=== PATIENT | male | born 1965 | race American Indian/Alaskan Native ===

== ENCOUNTER 2016-06-10 22:58 | Emergency (ER) | payer OTHER ==
--- NOTE | 2016-06-10 23:40 | EDM.PDOC ---
ED HISTORY OF PRESENT ILLNESS - General Chief Complaint: Cardiovascular Problem Stated Complaint: HIGH BLOOD PRESSURE Time Seen by Provider: 06/10/16 23:38 Source of Information: Reports: Patient History Limitations: Reports: No limitations - History of Present Illness INITIAL COMMENTS - FREE TEXT/NARRATIVE: c/o more SAVAGE since being off BP Rx last . also been urinating more now denies dysuria. - Related Data Allergies/ADRs: Allergies Allergy/AdvReac Type Severity Reaction Status Date / Time amlodipine Allergy Headache Verified 06/10/16 23:09 benazepril Allergy Cough Verified 04/16/16 06:02 cephalexin monohydrate Allergy Hives Verified 04/16/16 06:02 [From Keflex] ciprofloxacin [From Cipro] Allergy Hives Verified 04/16/16 06:02 ciprofloxacin HCl Allergy Hives Verified 04/16/16 06:02 [From Cipro] levofloxacin [From Levaquin] Allergy Hives Verified 04/16/16 06:02 Home Meds: Home Meds Losartan Potassium [Losartan Potassium] 1 tab PO DAILY 11/21/14 [History] Aspirin [Halfprin] 1 tab PO DAILY 07/21/15 [History] Ibuprofen [Motrin] 1 tab PO Q8H PRN 07/21/15 [History] Omeprazole 20 mg PO ACBREAKFAST 08/14/15 [History] sitaGLIPtin Phos/Metformin HCl [Janumet 50-1,000 MG] 1 tab PO WITHBREAKFAST [History] Past Medical History HEENT History: Reports: Impaired vision Other HEENT History: wears glasses Cardiovascular History: Reports: High cholesterol, Hypertension Respiratory History: Reports: None Gastrointestinal History: Reports: GERD Genitourinary History: Reports: None Musculoskeletal History: Reports: None Psychiatric History: Reports: None Endocrine/Metabolic History: Reports: Diabetes, type II, Obesity/BMI 30+ Hematologic History: Reports: None Immunologic History: Reports: None Oncologic (Cancer) History: Reports: None Dermatologic History: Reports: None - Past Surgical History HEENT Surgical History: Reports: Tonsillectomy GI Surgical History: Reports: Cholecystectomy Social & Family History - Family History Family Medical History: Noncontributory Cardiac: Reports: CAD, High cholesterol, Hypertension - Tobacco Use Smoking Status *Q: Never Smoker Second Hand Smoke Exposure: No - Caffeine Use Caffeine Use: Reports: Coffee - Recreational Drug Use Recreational Drug Use: No - Living Situation & Occupation Living situation: Reports: Occupation: employed ED ROS GENERAL - Review of Systems Review Of Systems: ROS reveals no pertinent complaints other than HPI. ED EXAM, GENERAL - Physical Exam Exam: See Below Exam Limited By: No limitations General Appearance: alert, WD/WN, no apparent distress, anxious Ears: hearing grossly normal Throat/Mouth: Normal voice, No airway compromise Head: atraumatic Neck: non-tender, full range of motion Respiratory/Chest: no respiratory distress Cardiovascular: regular rate, rhythm GI/Abdominal: soft, non tender Neurological: alert, oriented, normal cognition, normal gait, no motor/sensory deficits Psychiatric: flat affect Skin Exam: Warm, Dry Lymphatic: no adenopathy Course - Vital Signs Last Recorded V/S: Last Vital Signs Temp 36.6 C 06/10/16 23:02 Pulse 82 06/10/16 23:02 Resp 18 06/10/16 23:02 BP 167/87 H 06/10/16 23:02 Pulse Ox 98 06/10/16 23:02 - Orders/Labs/Meds Labs: Laboratory Tests 06/10/16 Range/Units 23:15 Urine Color Yellow (YELLOW) Urine Appearance Clear (CLEAR) Urine pH 6.0 (5.0-9.0) Ur Specific [place] <= 1.005 (1.005-1.030) Urine Protein Negative (NEGATIVE) Urine Glucose (UA) 250 H (NEGATIVE) Urine Ketones Negative (NEGATIVE) Urine Occult Blood Negative (NEGATIVE) Urine Nitrite Negative (NEGATIVE) Urine Bilirubin Negative (NEGATIVE) Urine Urobilinogen 0.2 (0.2-1.0) mg/dL Ur Leukocyte Esterase Negative (NEGATIVE) Urine RBC Not seen /HPF Urine WBC Not seen (0-5/HPF) /HPF Ur Epithelial Cells Occasional /HPF Urine Bacteria Rare (0-FEW/HPF) /HPF Meds: Medications Discontinued Medications Generic Name Dose Route Start Last Admin Trade Name Freq PRN Reason Stop Dose Admin Hydroxyzine HCl 25 mg 06/10/16 23:51 Atarax PO 06/10/16 23:52 ONETIME ONE - Re-Assessments/Exams Free Text/Narrative Re-Assessment/Exam: 06/10/16 23:52 results discussed with Pt. Departure - Departure Time of Disposition: 23:52 Disposition: Home, Self-Care 01 Condition: good Clinical Impression: Hypertension Qualifiers: Hypertension type: unspecified secondary hypertension Qualified Code(s): I15.9 - Secondary hypertension, unspecified; I15 - Secondary hypertension Instructions: Hypertension, [id number] Forms: ED Department Discharge Additional Instructions: 1) rest and avoid vigorous activities 2) see clinic Monday or recheck as needed rx given; hydroxyzine 25mg bid x 10
[2016-06-10] MEDS ORDERED: hydrOXYzine HCl 25 MG Tab PO ONE (23:51)
[2016-06-11 00:07] VITALS: BP 148/76
== END 2016-06-11 00:01 | disposition home or self-care (01) ==
LOC: DL.ED 22:58
DX: I15.9 Secondary hypertension, unspecified (principal); E78.00 Pure hypercholesterolemia, unspecified; K21.9 Gastro-esophageal reflux disease without esophagitis; E11.9 Type 2 diabetes mellitus without complications; E66.9 Obesity, unspecified; Z79.899 Other long term (current) drug therapy; Z98.890 Other specified postprocedural states; Z90.49 Acquired absence of other specified parts of digestive tract; Z88.1 Allergy status to other antibiotic agents; Z88.8 Allergy status to other drugs, medicaments and biological substances; Z79.82 Long term (current) use of aspirin
CPT/HCPCS: 81001; 99283; A9270

== ENCOUNTER 2017-02-13 13:28 | Emergency (ER) | payer OTHER ==
[2017-02-13 14:41] VITALS: BP 146/76
--- NOTE | 2017-02-13 16:32 | EDM.PDOC ---
ED HPI GENERAL MEDICAL PROBLEM - General Chief Complaint: Lower Extremity Injury/Pain Stated Complaint: BOTTOM OF RT FOOT HURTS Time Seen by Provider: 02/13/17 16:20 Source of Information: Reports: Patient History Limitations: Reports: No Limitations - History of Present Illness Onset: Gradual Location: Reports: Lower Extremity, Right Quality: Reports: Ache, Pressure Severity: Moderate Improves with: Reports: Rest Worsens with: Reports: Movement Context: Reports: Activity Associated Symptoms: Reports: No Other Symptoms Right Feet Pain Score (Numeric/FACES): 7 - Related Data Allergies Allergy/AdvReac Type Severity Reaction Status Date / Time amlodipine Allergy Headache Verified 02/13/17 14:33 benazepril Allergy Cough Verified 02/13/17 14:33 cephalexin monohydrate Allergy Hives Verified 02/13/17 14:33 [From Keflex] ciprofloxacin [From Cipro] Allergy Hives Verified 02/13/17 14:33 ciprofloxacin HCl Allergy Hives Verified 02/13/17 14:33 [From Cipro] levofloxacin [From Levaquin] Allergy Hives Verified 02/13/17 14:33 Home Meds: Home Meds Losartan Potassium [Losartan Potassium] 1 tab PO DAILY 11/21/14 [History] Aspirin [Halfprin] 1 tab PO DAILY 07/21/15 [History] Ibuprofen [Motrin] 1 tab PO Q8H PRN 07/21/15 [History] Omeprazole 20 mg PO ACBREAKFAST 08/14/15 [History] sitaGLIPtin Phos/Metformin HCl [Janumet 50-1,000 MG] 1 tab PO WITHBREAKFAST [History] Past Medical History HEENT History: Reports: Impaired Vision Other HEENT History: wears glasses Cardiovascular History: Reports: High Cholesterol, Hypertension Respiratory History: Reports: None Gastrointestinal History: Reports: GERD Genitourinary History: Reports: None Musculoskeletal History: Reports: None Psychiatric History: Reports: None Endocrine/Metabolic History: Reports: Diabetes, Type II, Obesity/BMI 30+ Hematologic History: Reports: None Immunologic History: Reports: None Oncologic (Cancer) History: Reports: None Dermatologic History: Reports: None - Past Surgical History GI Surgical History: Reports: Cholecystectomy Social & Family History - Family History Family Medical History: Noncontributory Cardiac: Reports: CAD, High Cholesterol, Hypertension - Tobacco Use Smoking Status *Q: Never Smoker Second Hand Smoke Exposure: No - Caffeine Use Caffeine Use: Reports: Coffee - Recreational Drug Use Recreational Drug Use: No - Living Situation & Occupation Living situation: Reports: Occupation: Employed Review of Systems - Review of Systems Review Of Systems: ROS reveals no pertinent complaints other than HPI. ED EXAM, GENERAL - Physical Exam Exam: See Below Exam Limited By: No Limitations Eye Exam: Bilateral Eye: EOMI, Normal Inspection Ears: Normal External Exam, Hearing Grossly Normal Nose: Normal Inspection Throat/Mouth: Normal Inspection, Normal Voice, No Airway Compromise Head: Atraumatic, Normocephalic Neck: Normal Inspection, Supple, Non-Tender, Full Range of Motion Respiratory/Chest: No Respiratory Distress, Lungs Clear, Normal Breath Sounds, No Accessory Muscle Use, Chest Non-Tender Cardiovascular: Normal Peripheral Pulses, Regular Rate, Rhythm, No Edema, No Gallop, No JVD, No Murmur, No Rub Peripheral Pulses: 2+: Brachial (R), Radial (L), Dorsalis Pedis (R) GI/Abdominal: Normal Bowel Sounds, Soft, Non-Tender (Male) Exam: Deferred Rectal (Males) Exam: Deferred Back Exam: Normal Inspection, Full Range of Motion Extremities: Normal Inspection, Normal Range of Motion, No Pedal Edema, Normal Capillary Refill, Other (Pain to the arch of the right foot, tender to touch, painful to ambulate) Neurological: Alert, Oriented, Normal Cognition, Normal Gait, No Motor/Sensory Deficits Psychiatric: Normal Affect, Normal Mood Skin Exam: Warm, Dry, Intact, Normal Color, No Rash Lymphatic: No Adenopathy Course - Vital Signs Last Recorded V/S: Last Vital Signs Temp 98.2 F 02/13/17 14:37 Pulse 88 02/13/17 14:37 Resp 14 02/13/17 14:37 BP 146/76 H 02/13/17 14:37 Pulse Ox 98 02/13/17 14:37 Departure - Departure Time of Disposition: 16:28 Disposition: Home, Self-Care 01 Condition: Fair Clinical Impression: Plantar fasciitis of right foot - Discharge Information Instructions: Plantar Fasciitis Forms: ED Department Discharge Additional Instructions: Follow up with your primary care facility. Roll foot on a tennis ball for stretching exercises. Ibuprofen or tylenol as directed for pain. Physical therapy referral.
== END 2017-02-13 16:37 | disposition home or self-care (01) ==
LOC: DL.ED 13:28
DX: M72.2 Plantar fascial fibromatosis (principal); I10 Essential (primary) hypertension; E78.00 Pure hypercholesterolemia, unspecified; E11.9 Type 2 diabetes mellitus without complications; K21.9 Gastro-esophageal reflux disease without esophagitis; Z79.82 Long term (current) use of aspirin; Z79.899 Other long term (current) drug therapy; Z88.1 Allergy status to other antibiotic agents; Z88.8 Allergy status to other drugs, medicaments and biological substances; Z79.84 Long term (current) use of oral hypoglycemic drugs
CPT/HCPCS: 99283

== ENCOUNTER 2017-09-08 22:38 | Emergency (ER) | payer OTHER ==
[2017-09-08] MEDS ORDERED: Acetaminophen/HYDROcodone 325-10 MG Tab PO ONE (22:39)
[2017-09-08 23:05] VITALS: BP 134/80
[2017-09-08] MEDS ORDERED: Clindamycin HCl 150 MG Cap PO ONE (23:55)
[2017-09-08] MEDS ORDERED: Acetaminophen/HYDROcodone 325-10 MG Tab ONE (23:58)
--- NOTE | 2017-09-08 23:59 | EDM.PDOC ---
ED HPI GENERAL MEDICAL PROBLEM - General Chief Complaint: ENT Problem Stated Complaint: ABCESS TOOTH [id number] Time Seen by Provider: 09/08/17 23:55 Source of Information: Reports: Patient History Limitations: Reports: No Limitations - History of Present Illness INITIAL COMMENTS - FREE TEXT/NARRATIVE: tooth abscess flared up unable to get into [facility] today Left Oral/Mouth Pain Score (Numeric/FACES): 5 - Related Data Allergies Allergy/AdvReac Type Severity Reaction Status Date / Time amlodipine Allergy Headache Verified 02/13/17 14:33 benazepril Allergy Cough Verified 02/13/17 14:33 cephalexin monohydrate Allergy Hives Verified 02/13/17 14:33 [From Keflex] ciprofloxacin [From Cipro] Allergy Hives Verified 02/13/17 14:33 ciprofloxacin HCl Allergy Hives Verified 02/13/17 14:33 [From Cipro] levofloxacin [From Levaquin] Allergy Hives Verified 02/13/17 14:33 Home Meds: Home Meds Losartan Potassium 1 tab PO DAILY 11/21/14 [History] Aspirin [Halfprin] 1 tab PO DAILY 07/21/15 [History] Ibuprofen [Motrin] 1 tab PO Q8H PRN 07/21/15 [History] Omeprazole 20 mg PO ACBREAKFAST 08/14/15 [History] sitaGLIPtin Phos/Metformin HCl [Janumet 50-1,000 MG] 1 tab PO WITHBREAKFAST [History] Past Medical History HEENT History: Reports: Impaired Vision Other HEENT History: wears glasses Cardiovascular History: Reports: High Cholesterol, Hypertension Respiratory History: Reports: None Gastrointestinal History: Reports: GERD Genitourinary History: Reports: None Musculoskeletal History: Reports: None Psychiatric History: Reports: None Endocrine/Metabolic History: Reports: Diabetes, Type II, Obesity/BMI 30+ Hematologic History: Reports: None Immunologic History: Reports: None Oncologic (Cancer) History: Reports: None Dermatologic History: Reports: None - Past Surgical History GI Surgical History: Reports: Cholecystectomy Social & Family History - Family History Family Medical History: Noncontributory Cardiac: Reports: CAD, High Cholesterol, Hypertension - Tobacco Use Smoking Status *Q: Never Smoker - Caffeine Use Caffeine Use: Reports: Coffee - Recreational Drug Use Recreational Drug Use: No - Living Situation & Occupation Living situation: Reports: Occupation: Employed ED ROS ENT - Review of Systems Review Of Systems: ROS reveals no pertinent complaints other than HPI. ED EXAM, ENT - Physical Exam Exam: See Below Exam Limited By: No Limitations General Appearance: Alert, WD/WN, Mild Distress, Other (tooth pain) Ears: Hearing Grossly Normal Mouth/Throat: Dental Abcess, Dental Pain, Dental Tenderness Head: Atraumatic Neck: Non-Tender, Full Range of Motion Respiratory/Chest: No Respiratory Distress Cardiovascular: Regular Rate, Rhythm GI/Abdominal: Soft, Non-Tender Neurological: Alert, Oriented, Normal Cognition, Normal Gait, No Motor/Sensory Deficits Psychiatric: Tearful Skin: Warm, Dry, Normal Color Lymphatic: No Adenopathy Course - Vital Signs Last Recorded V/S: Last Vital Signs Temp 36.6 C 09/08/17 22:58 Pulse 87 09/08/17 22:58 Resp 18 09/08/17 22:58 BP 134/80 09/08/17 22:58 Pulse Ox 98 09/08/17 22:58 - Orders/Labs/Meds Orders: Active Orders 24 hr Category Date Time Status Clindamycin HCl [Cleocin] Med 09/08/17 23:55 Once 300 mg PO ONETIME ONE Departure - Departure Time of Disposition: 23:57 Disposition: Home, Self-Care 01 Condition: Good Clinical Impression: Dental abscess, Dental caries extending into dentin, Dental caries - Discharge Information Instructions: Dental Abscess, [id number] Additional Instructions: 1) avoid candies, sodas, 2) soft diet 3) see DENTIST MONDAY rx given; clindamycin 150mg qid x 40 vicodin 5/325mg bid prn x 12 - My Orders Last 24 Hours: My Active Orders 09/08/17 23:55 Clindamycin HCl [Cleocin] 300 mg PO ONETIME ONE - Assessment/Plan Last 24 Hours: My Active Orders 09/08/17 23:55 Clindamycin HCl [Cleocin] 300 mg PO ONETIME ONE
== END 2017-09-09 00:07 | disposition home or self-care (01) ==
LOC: DL.ED 22:38
DX: K04.7 Periapical abscess without sinus (principal); K02.9 Dental caries, unspecified; E78.00 Pure hypercholesterolemia, unspecified; I10 Essential (primary) hypertension; K21.9 Gastro-esophageal reflux disease without esophagitis; E11.9 Type 2 diabetes mellitus without complications; Z88.8 Allergy status to other drugs, medicaments and biological substances; Z88.1 Allergy status to other antibiotic agents; Z79.899 Other long term (current) drug therapy; Z79.82 Long term (current) use of aspirin
CPT/HCPCS: 99282; A9270

== ENCOUNTER 2017-10-07 13:02 | Emergency (ER) | payer OTHER ==
[2017-10-07 13:09] VITALS: BP 156/82
--- NOTE | 2017-10-07 13:33 | EDM.PDOC ---
ED HPI GENERAL MEDICAL PROBLEM - General Chief Complaint: Genitourinary Problem Stated Complaint: [id number] KIDNEY OR BLADDER INFECTION Time Seen by Provider: 10/07/17 13:31 Source of Information: Reports: Patient History Limitations: Reports: No Limitations - History of Present Illness INITIAL COMMENTS - FREE TEXT/NARRATIVE: Patient comes emergency department today with complaints of urinary frequency and right flank pain. The symptomology is very consistent with a urinary tract infections that he has had in the past. This started 3 days ago. He does complain of a subjective fever and chills. No weakness dizziness lightheadedness. No dysuria just urinary frequency. No nausea no vomiting. No pressure on his rectum or painful stools. Bilateral Lower Back Pain Score (Numeric/FACES): 6 - Related Data Allergies Allergy/AdvReac Type Severity Reaction Status Date / Time amlodipine Allergy Headache Verified 10/07/17 13:05 benazepril Allergy Cough Verified 10/07/17 13:05 cephalexin monohydrate Allergy Hives Verified 10/07/17 13:05 [From Keflex] ciprofloxacin [From Cipro] Allergy Hives Verified 10/07/17 13:05 ciprofloxacin HCl Allergy Hives Verified 10/07/17 13:05 [From Cipro] levofloxacin [From Levaquin] Allergy Hives Verified 10/07/17 13:05 Home Meds: Home Meds Losartan Potassium 1 tab PO DAILY 11/21/14 [History] Aspirin [Halfprin] 1 tab PO DAILY 07/21/15 [History] Ibuprofen [Motrin] 1 tab PO Q8H PRN 07/21/15 [History] Omeprazole 20 mg PO ACBREAKFAST 08/14/15 [History] sitaGLIPtin Phos/Metformin HCl [Janumet 50-1,000 MG] 1 tab PO WITHBREAKFAST [History] Past Medical History HEENT History: Reports: Impaired Vision Other HEENT History: wears glasses Cardiovascular History: Reports: High Cholesterol, Hypertension Respiratory History: Reports: None Gastrointestinal History: Reports: GERD Genitourinary History: Reports: None Musculoskeletal History: Reports: None Psychiatric History: Reports: None Endocrine/Metabolic History: Reports: Diabetes, Type II, Obesity/BMI 30+ Hematologic History: Reports: None Immunologic History: Reports: None Oncologic (Cancer) History: Reports: None Dermatologic History: Reports: None - Past Surgical History GI Surgical History: Reports: Cholecystectomy Social & Family History - Family History Family Medical History: Noncontributory Cardiac: Reports: CAD, High Cholesterol, Hypertension - Tobacco Use Smoking Status *Q: Never Smoker - Caffeine Use Caffeine Use: Reports: Coffee - Recreational Drug Use Recreational Drug Use: No - Living Situation & Occupation Living situation: Reports: Occupation: Employed ED ROS GENERAL - Review of Systems Review Of Systems: ROS reveals no pertinent complaints other than HPI. ED EXAM, RENAL/ - Physical Exam Exam: See Below Exam Limited By: No Limitations General Appearance: Alert, WD/WN, No Apparent Distress Head: Atraumatic, Normocephalic Neck: Normal Inspection, Supple Respiratory/Chest: No Respiratory Distress, Lungs Clear, No Accessory Muscle Use Cardiovascular: Normal Peripheral Pulses, Regular Rate, Rhythm GI/Abdominal: Normal Bowel Sounds, Soft, Non-Tender, No Organomegaly (Male) Exam: Deferred Rectal (Males) Exam: Deferred Back Exam: No: CVA Tenderness (L), CVA Tenderness (R) Extremities: Normal Inspection, Normal Range of Motion, Normal Capillary Refill Neurological: Alert, Oriented Psychiatric: Normal Affect, Normal Mood Skin Exam: Warm, Dry, Intact, Normal Color Lymphatic: No Adenopathy Course - Vital Signs Last Recorded V/S: Last Vital Signs Temp 36.2 C 10/07/17 13:08 Pulse 89 10/07/17 13:08 Resp 18 10/07/17 13:08 BP 156/82 H 10/07/17 13:08 Pulse Ox 99 10/07/17 13:08 - Orders/Labs/Meds Orders: Active Orders 24 hr Category Date Time Status POC Glucose [Blood Glucose Check, Bedside] [RC] ONETIME Care 10/07/17 14:03 Active CULTURE URINE [RM] Stat Lab 10/07/17 13:07 Received Labs: Laboratory Tests 10/07/17 10/07/17 Range/Units 13:07 13:55 POC Glucose 198 H (70-105) mg/dl Urine Color Yellow (YELLOW) Urine Appearance Slightly cloudy (CLEAR) Urine pH 7.5 (5.0-9.0) Ur Specific [place] 1.015 (1.005-1.030) Urine Protein Negative (NEGATIVE) Urine Glucose (UA) 250 H (NEGATIVE) Urine Ketones Negative (NEGATIVE) Urine Occult Blood Negative (NEGATIVE) Urine Nitrite Negative (NEGATIVE) Urine Bilirubin Negative (NEGATIVE) Urine Urobilinogen 1.0 (0.2-1.0) mg/dL Ur Leukocyte Esterase Small H (NEGATIVE) Urine RBC 0-5 /HPF Urine WBC 5-10 H (0-5/HPF) /HPF Ur Epithelial Cells Occasional /HPF Amorphous Sediment Few (0/HPF) /HPF Urine Bacteria Occasional (0-FEW/HPF) /HPF Departure - Departure Time of Disposition: 13:43 Disposition: Home, Self-Care 01 Clinical Impression: UTI, Urinary tract infectious disease Diabetes mellitus Qualifiers: Diabetes mellitus type: type 2 Diabetes mellitus skilled nursing insulin use: with manager long term care use Diabetes mellitus complication status: with unspecified complications Qualified Code(s): E11.8 - Type 2 diabetes mellitus with unspecified complications - Discharge Information Instructions: Urinary Tract Infection, Adult, [id number] Referrals: Nitesh Iqbal MD [Primary Care Provider] - Forms: ED Department Discharge Additional Instructions: Pyridium 1 tablet three times a day as needed for painful urination or urinary frequency. Cefdinir, 1 tablet twice daily for the next 7 days. RX given to the patient. Tylenol and or Ibuprofen as needed for pain discomfort. Push oral fluids. Watch blood sugars over the next few days. Return to the ED if new or worsening symptoms. Follow up with primary care provider in the next 4-6 days if not improving sooner if worse. - My Orders Last 24 Hours: My Active Orders 10/07/17 13:07 CULTURE URINE [RM] Stat 10/07/17 14:03 POC Glucose [Blood Glucose Check, Bedside] [RC] ONETIME - Assessment/Plan Last 24 Hours: My Active Orders 10/07/17 13:07 CULTURE URINE [RM] Stat 10/07/17 14:03 POC Glucose [Blood Glucose Check, Bedside] [RC] ONETIME Assessment:: UTI DM Plan: Pyridium 1 tablet three times a day as needed for painful urination or urinary frequency. Cefdinir, 1 tablet twice daily for the next 7 days. RX given to the patient. Tylenol and or Ibuprofen as needed for pain discomfort. Push oral fluids. Watch blood sugars over the next few days. Return to the ED if new or worsening symptoms. Follow up with primary care provider in the next 4-6 days if not improving sooner if worse.
== END 2017-10-07 13:57 | disposition home or self-care (01) ==
LOC: DL.ED 13:02
DX: N39.0 Urinary tract infection, site not specified (principal); E11.9 Type 2 diabetes mellitus without complications; I10 Essential (primary) hypertension; E66.9 Obesity, unspecified; Z88.1 Allergy status to other antibiotic agents; Z88.8 Allergy status to other drugs, medicaments and biological substances
CPT/HCPCS: 81001; 82962; 87086; 87088; 87186; 99284

== ENCOUNTER → 2018-08-02 | Outpatient (CLI) | payer BC, OTHER | LOC: DL.MRI 12:47 | PROVIDERS: ATTEND Family Medicine | DX: M25.561 Pain in right knee (principal); M25.461 Effusion, right knee; M85.661 Other cyst of bone, right lower leg | CPT/HCPCS: 73721-RT ==

== ENCOUNTER 2019-12-07 17:55 | Emergency (ER) | payer BC, OTHER ==
[2019-12-07 19:10] VITALS: BP 156/83; PULSE 99
[2019-12-07] MEDS ORDERED: Silver Nitrate Applicator Each TOP ONE (19:56)
[2019-12-07] MEDS ORDERED: Lidocaine/EPINEPHrine/Tetracaine Soln 5 ML Each TOP ONE (19:56)
--- NOTE | 2019-12-07 20:06 | EDM.PDOC ---
ED HPI GENERAL MEDICAL PROBLEM - General Chief Complaint: Genitourinary Problem Stated Complaint: PULLED FORESKIN BACK, SOMETHING STARTED BLEEDING Time Seen by Provider: 12/07/19 20:00 Source of Information: Reports: Patient History Limitations: Reports: No Limitations - History of Present Illness INITIAL COMMENTS - FREE TEXT/NARRATIVE: pulled back foreskin to urinate and pens started bleeding. denies trauma. has appt with URO for circumcision. - Related Data Allergies Allergy/AdvReac Type Severity Reaction Status Date / Time amlodipine Allergy Headache Verified 12/07/19 18:58 benazepril Allergy Cough Verified 12/07/19 18:58 cephalexin monohydrate Allergy Hives Verified 12/07/19 18:58 [From Keflex] ciprofloxacin [From Cipro] Allergy Hives Verified 12/07/19 18:58 ciprofloxacin HCl Allergy Hives Verified 12/07/19 18:58 [From Cipro] levofloxacin [From Levaquin] Allergy Hives Verified 12/07/19 18:58 Home Meds: Home Meds Losartan Potassium 1 tab PO DAILY 11/21/14 [History] Aspirin [Halfprin] 1 tab PO DAILY 07/21/15 [History] Ibuprofen [Motrin] 1 tab PO Q8H PRN 07/21/15 [History] Omeprazole 20 mg PO ACBREAKFAST 08/14/15 [History] sitaGLIPtin Phos/Metformin HCl [Janumet 50-1,000 MG] 1 tab PO WITHBREAKFAST 10/09/15 [History] Past Medical History HEENT History: Reports: Impaired Vision Other HEENT History: wears glasses Cardiovascular History: Reports: High Cholesterol, Hypertension Respiratory History: Reports: None Gastrointestinal History: Reports: GERD Genitourinary History: Reports: Other (See Below) Other Genitourinary History: irritation under the foreskin Musculoskeletal History: Reports: None Psychiatric History: Reports: None Endocrine/Metabolic History: Reports: Diabetes, Type II, Obesity/BMI 30+ Hematologic History: Reports: None Immunologic History: Reports: None Oncologic (Cancer) History: Reports: None Dermatologic History: Reports: Urticaria Other Dermatologic History: harsh area rash and irritation - Past Surgical History GI Surgical History: Reports: Cholecystectomy Male Surgical History: Reports: None Social & Family History - Family History Family Medical History: Noncontributory Cardiac: Reports: CAD, High Cholesterol, Hypertension - Tobacco Use Smoking Status *Q: Unknown Ever Smoked - Caffeine Use Caffeine Use: Reports: Coffee - Recreational Drug Use Recreational Drug Use: No - Living Situation & Occupation Living situation: Reports: Occupation: Employed ED ROS GENERAL - Review of Systems Review Of Systems: Comprehensive ROS is negative, except as noted in HPI. ED EXAM, RENAL/ - Physical Exam Exam: See Below Exam Limited By: No Limitations General Appearance: Alert, WD/WN, Mild Distress, Other (upset) Ears: Hearing Grossly Normal Throat/Mouth: Normal Voice, No Airway Compromise Head: Atraumatic Neck: Non-Tender, Full Range of Motion Respiratory/Chest: No Respiratory Distress Cardiovascular: Regular Rate, Rhythm GI/Abdominal: Soft, Non-Tender (Male) Exam: Other (penile frenulum tear with active oozing, controllable with pressure) Rectal (Males) Exam: Deferred Neurological: Alert, Oriented, Normal Cognition, Normal Gait, No Motor/Sensory Deficits Psychiatric: Other (upset) Skin Exam: Warm, Dry, Normal Color Lymphatic: No Adenopathy ED PROCEDURES - Additional/Other Procedure(s) Procedure(s) (Free Text): 1) betadine cleanse 2) LET local anaesth applied 3) silver nit cautry without problem Course - Vital Signs Last Recorded V/S: Last Vital Signs Temp 36.8 C 12/07/19 19:08 Pulse 99 12/07/19 19:08 Resp 18 12/07/19 19:08 BP 156/83 H 12/07/19 19:08 Pulse Ox 98 12/07/19 19:08 - Orders/Labs/Meds Meds: Medications Discontinued Medications Generic Name Dose Route Start Last Admin Trade Name Vivian PRN Reason Stop Dose Admin Lidocaine/Tetracaine 5 ml 12/07/19 19:56 12/07/19 20:20 Let Soln TOP 12/07/19 19:57 5 ml ONETIME ONE Administration Silver Nitrate 1 each 12/07/19 19:56 12/07/19 20:20 Silver Nitrate TOP 12/07/19 19:57 1 each ONETIME ONE Administration - Re-Assessments/Exams Free Text/Narrative Re-Assessment/Exam: 12/07/19 20:58 re-exam; no further bleeding. Departure - Departure Time of Disposition: 20:58 Disposition: Home, Self-Care 01 Condition: Good Clinical Impression: Laceration without foreign body of penis, initial encounter, Short frenulum of penis - Discharge Information Forms: ED Department Discharge Additional Instructions: 1) keep wound clean and dry and covered 2) brittany UROLOGIST Monday to see if circumcision and be moved forward due to tear of penile frenulum 3) recheck as needed Sepsis Event Note (ED) - Evaluation Sepsis Screening Result: No Definite Risk - Focused Exam Vital Signs: Vital Signs Temp Pulse Resp BP Pulse Ox 12/07/19 19:08 36.8 C 99 18 156/83 H 98
== END 2019-12-07 21:12 | disposition home or self-care (01) ==
LOC: DL.ED 17:55
DX: S31.21XA Laceration without foreign body of penis, initial encounter (principal); N48.89 Other specified disorders of penis; I10 Essential (primary) hypertension; E11.9 Type 2 diabetes mellitus without complications; E66.9 Obesity, unspecified; Z68.39 Body mass index [BMI] 39.0-39.9, adult; Z79.899 Other long term (current) drug therapy; Z79.82 Long term (current) use of aspirin; Z88.8 Allergy status to other drugs, medicaments and biological substances; Z88.1 Allergy status to other antibiotic agents; X58.XXXA Exposure to other specified factors, initial encounter
CPT/HCPCS: 99283; A9270

== ENCOUNTER 2019-12-28 17:04 | Emergency (ER) | payer BC, OTHER ==
[2019-12-28 17:22] VITALS: BP 151/82; PULSE 100
--- NOTE | 2019-12-28 17:48 | EDM.PDOC ---
ED HPI GENERAL MEDICAL PROBLEM - General Chief Complaint: Genitourinary Problem Stated Complaint: CIRCUMCISION DONE 2 DAYS AGO MIGHT BE INFECTED Time Seen by Provider: 12/28/19 17:30 Source of Information: Reports: Patient, RN, RN Notes Reviewed History Limitations: Reports: No Limitations - History of Present Illness INITIAL COMMENTS - FREE TEXT/NARRATIVE: Patient presents to the ED via personal vehicle with complaints of swelling and pain to glans of penis. Per his report, the patient underwent a circumcision on Monday of this week, 12/24/19. He states he was told by his surgeon his dressing was to come of "in a couple of days," but he has been unable to remove it. He is now concerned about a "bulge" that has formed to the glans and is wondering if there is an infectious process on his incisions. He rates the pain to his penis at a 5/10 and reports he has been using Tylenol with appropriate pain relief. He denies fever, shaking chills, purulent discharge, on increased pain to affected area. Penis Pain Score (Numeric/FACES): 5 - Related Data Allergies Allergy/AdvReac Type Severity Reaction Status Date / Time amlodipine Allergy Headache Verified 12/28/19 17:23 benazepril Allergy Cough Verified 12/28/19 17:23 cephalexin monohydrate Allergy Hives Verified 12/28/19 17:23 [From Keflex] ciprofloxacin [From Cipro] Allergy Hives Verified 12/28/19 17:23 ciprofloxacin HCl Allergy Hives Verified 12/28/19 17:23 [From Cipro] levofloxacin [From Levaquin] Allergy Hives Verified 12/28/19 17:23 Home Meds: Home Meds Losartan Potassium 1 tab PO DAILY 11/21/14 [History] Aspirin [Halfprin] 1 tab PO DAILY 07/21/15 [History] Ibuprofen [Motrin] 1 tab PO Q8H PRN 07/21/15 [History] Omeprazole 20 mg PO ACBREAKFAST 08/14/15 [History] sitaGLIPtin Phos/Metformin HCl [Janumet 50-1,000 MG] 1 tab PO WITHBREAKFAST 10/09/15 [History] Acetaminophen [Tylenol Extra Strength] 500 mg PO ASDIRECTED PRN 12/28/19 [History] Past Medical History HEENT History: Reports: Impaired Vision Other HEENT History: wears glasses Cardiovascular History: Reports: High Cholesterol, Hypertension Respiratory History: Reports: None Gastrointestinal History: Reports: GERD Genitourinary History: Reports: Other (See Below) Other Genitourinary History: irritation under the foreskin Musculoskeletal History: Reports: None Neurological History: Reports: None Psychiatric History: Reports: None Endocrine/Metabolic History: Reports: Diabetes, Type II, Obesity/BMI 30+ Hematologic History: Reports: None Immunologic History: Reports: None Oncologic (Cancer) History: Reports: None Dermatologic History: Reports: Urticaria Other Dermatologic History: harsh area rash and irritation - Infectious Disease History Infectious Disease History: Reports: None - Past Surgical History Head Surgeries/Procedures: Reports: None GI Surgical History: Reports: Cholecystectomy Male Surgical History: Reports: None Social & Family History - Family History Family Medical History: Noncontributory Cardiac: Reports: CAD, High Cholesterol, Hypertension - Tobacco Use Smoking Status *Q: Never Smoker Second Hand Smoke Exposure: No - Caffeine Use Caffeine Use: Reports: Coffee - Recreational Drug Use Recreational Drug Use: No - Living Situation & Occupation Living situation: Reports: Occupation: Employed ED ROS GENERAL - Review of Systems Review Of Systems: Comprehensive ROS is negative, except as noted in HPI. ED EXAM, RENAL/ - Physical Exam Exam: See Below Exam Limited By: No Limitations General Appearance: Alert, WD/WN, No Apparent Distress (Male) Exam: No Hernia, Circumcised (New, healing circumcision incision), Other (Significant edema to glans of penis; Surgical dressing removed without complication - No erythema, drainage, or heat appreciated; Small area of granulation tissue to dorsal aspect of shaft). No: Scrotal Swelling, Scrotum Tenderness (L), Scrotum Tenderness (R), Suprapubic Fullness, Testicular Tenderness (L), Testicular Tenderness (R), Urethral Discharge Neurological: Alert, Oriented, CN II-XII Intact Skin Exam: Wound/Incision (Significant edema to glans of penis; Surgical dressing removed without complication - No erythema, drainage, or heat appreciated; Small area of granulation tissue to dorsal aspect of shaft) Course - Vital Signs Last Recorded V/S: Last Vital Signs Temp 97.6 F 12/28/19 17:16 Pulse 100 12/28/19 17:16 Resp 16 12/28/19 17:16 BP 151/82 H 12/28/19 17:16 Pulse Ox 99 10/10/20 17:16 - Re-Assessments/Exams Free Text/Narrative Re-Assessment/Exam: 12/28/19 17:40 No s/s concerning for infectious process. Patient instructed to follow up with surgeon and continue incision care, per surgeon recommendations. Departure - Departure Time of Disposition: 17:45 Disposition: Home, Self-Care 01 Condition: Good Clinical Impression: Encounter for postoperative wound check - Discharge Information *PRESCRIPTION DRUG MONITORING PROGRAM REVIEWED*: Not Applicable *COPY OF PRESCRIPTION DRUG MONITORING REPORT IN PATIENT YOSEF: Not Applicable Instructions: Wound Infection, [id number], Incision Care, Adult, [id number] Forms: ED Department Discharge Additional Instructions: Keep incision clean and dry. Alternate Tylenol and Motrin for pain relief. Keep penis elevated on pillows while at rest to help reduce swelling. Sepsis Event Note (ED) - Evaluation Sepsis Screening Result: No Definite Risk - Focused Exam Vital Signs: Vital Signs Temp Pulse Resp BP Pulse Ox 12/28/19 17:16 97.6 F 100 16 151/82 H 99
== END 2019-12-28 17:53 | disposition home or self-care (01) ==
LOC: DL.ED 17:04
DX: Z48.816 Encounter for surgical aftercare following surgery on the genitourinary system (principal); I10 Essential (primary) hypertension; K21.9 Gastro-esophageal reflux disease without esophagitis; E11.9 Type 2 diabetes mellitus without complications; E66.9 Obesity, unspecified; Z88.8 Allergy status to other drugs, medicaments and biological substances; Z88.1 Allergy status to other antibiotic agents; Z79.82 Long term (current) use of aspirin; Z79.899 Other long term (current) drug therapy
CPT/HCPCS: 99282

== ENCOUNTER 2020-03-14 08:12 | Emergency (ER) | payer BC, OTHER ==
[2020-03-14 08:22] VITALS: BP 149/84; PULSE 100
--- NOTE | 2020-03-14 08:33 | EDM.PDOC ---
ED HPI GENERAL MEDICAL PROBLEM - General Chief Complaint: Flank Pain Stated Complaint: KIDNEY PAIN AND INFECTED HANG NAIL.. Time Seen by Provider: 03/14/20 08:33 Source of Information: Reports: Patient, RN, RN Notes Reviewed History Limitations: Reports: No Limitations - History of Present Illness INITIAL COMMENTS - FREE TEXT/NARRATIVE: Pt is a 54 year old male who presents to the ER with c/o left flank pain that began yesterday. He states in the past he has had pain like this and was told he had a kidney infection. Patient admits to frequency with urination, denies urgency or burning. Denies Fever or chills, N/V/D. Patient states he has had kidney stones in the past, several years ago he "thinks". Admits to history of diabetes, taking oral agents. Patient rates left flank pain 10/27. Patient also c/o infected hangnail to the right middle finger. He states he does bite his finger nails, and this began a few days ago. Onset: Gradual Left Flank Pain Score (Numeric/FACES): 8 - Related Data Allergies Allergy/AdvReac Type Severity Reaction Status Date / Time amlodipine Allergy Headache Verified 03/14/20 08:22 benazepril Allergy Cough Verified 03/14/20 08:22 cephalexin monohydrate Allergy Hives Verified 03/14/20 08:22 [From Keflex] ciprofloxacin [From Cipro] Allergy Hives Verified 03/14/20 08:22 ciprofloxacin HCl Allergy Hives Verified 03/14/20 08:22 [From Cipro] levofloxacin [From Levaquin] Allergy Hives Verified 03/14/20 08:22 Home Meds: Home Meds Losartan Potassium 1 tab PO DAILY 11/21/14 [History] Aspirin [Halfprin] 1 tab PO DAILY 07/21/15 [History] Ibuprofen [Motrin] 1 tab PO Q8H PRN 07/21/15 [History] Omeprazole 20 mg PO ACBREAKFAST 08/14/15 [History] sitaGLIPtin Phos/Metformin HCl [Janumet 50-1,000 MG] 1 tab PO WITHBREAKFAST 10/09/15 [History] Acetaminophen [Tylenol Extra Strength] 500 mg PO ASDIRECTED PRN 12/28/19 [History] metFORMIN HCl [Metformin HCl] 1,000 mg PO BID 03/14/20 [History] Past Medical History HEENT History: Reports: Impaired Vision Other HEENT History: wears glasses Cardiovascular History: Reports: High Cholesterol, Hypertension Respiratory History: Reports: None Gastrointestinal History: Reports: GERD Genitourinary History: Reports: Other (See Below) Other Genitourinary History: irritation under the foreskin Musculoskeletal History: Reports: None Neurological History: Reports: None Psychiatric History: Reports: None Endocrine/Metabolic History: Reports: Diabetes, Type II, Obesity/BMI 30+ Hematologic History: Reports: None Immunologic History: Reports: None Oncologic (Cancer) History: Reports: None Dermatologic History: Reports: Urticaria Other Dermatologic History: harsh area rash and irritation - Infectious Disease History Infectious Disease History: Reports: None - Past Surgical History Head Surgeries/Procedures: Reports: None HEENT Surgical History: Reports: Tonsillectomy GI Surgical History: Reports: Cholecystectomy Male Surgical History: Reports: None Social & Family History - Family History Family Medical History: No Pertinent Family History Cardiac: Reports: CAD, High Cholesterol, Hypertension - Tobacco Use Tobacco Use Status *Q: Never Tobacco User Second Hand Smoke Exposure: No - Caffeine Use Caffeine Use: Reports: Coffee - Recreational Drug Use Recreational Drug Use: No - Living Situation & Occupation Living situation: Reports: Occupation: Employed ED ROS GENERAL - Review of Systems Review Of Systems: Comprehensive ROS is negative, except as noted in HPI. ED EXAM, RENAL/ - Physical Exam Exam: See Below Exam Limited By: No Limitations General Appearance: Alert, WD/WN, No Apparent Distress Eye Exam: Bilateral Eye: EOMI, Normal Inspection Ears: Normal External Exam, Hearing Grossly Normal Nose: Normal Inspection Throat/Mouth: Normal Inspection, Normal Voice, No Airway Compromise Head: Atraumatic, Normocephalic Neck: Normal Inspection, Supple, Non-Tender, Full Range of Motion Respiratory/Chest: No Respiratory Distress, Lungs Clear, Normal Breath Sounds, No Accessory Muscle Use, Chest Non-Tender Cardiovascular: Normal Peripheral Pulses, Regular Rate, Rhythm, No Edema, No Gallop, No JVD, No Murmur, No Rub GI/Abdominal: Normal Bowel Sounds, Soft, Non-Tender, No Organomegaly, No Distention, No Abnormal Bruit, No Mass (Male) Exam: Deferred Rectal (Males) Exam: Deferred Back Exam: Normal Inspection, Full Range of Motion, CVA Tenderness (L). No: CVA Tenderness (R) Extremities: Normal Inspection, Normal Range of Motion, Non-Tender, Normal Capillary Refill, No Pedal Edema Neurological: Alert, Oriented, CN II-XII Intact, Normal Cognition, Normal Gait, Normal Reflexes, No Motor/Sensory Deficits Psychiatric: Normal Affect, Normal Mood Skin Exam: Warm, Dry, No Rash, Erythema (right middle finger parnychia) Lymphatic: No Adenopathy Course - Vital Signs Last Recorded V/S: Last Vital Signs Temp 98.7 F 03/14/20 08:19 Pulse 100 03/14/20 08:19 Resp 18 03/14/20 08:19 BP 149/84 H 03/14/20 08:19 Pulse Ox 98 03/14/20 08:19 - Orders/Labs/Meds Labs: Laboratory Tests 03/14/20 03/14/20 03/14/20 Range/Units 08:29 08:47 08:47 WBC 7.4 (5.0-10.0) 10^3/uL RBC 5.19 (4.6-6.2) 10^6/uL Hgb 16.6 D (14.0-18.0) g/dL Hct 45.6 (40.0-54.0) % MCV 87.9 (80-100) fL MCH 32.0 (27.0-34.0) pg MCHC 36.4 H (33.0-35.0) g/dL Plt Count 241 (150-450) 10^3/uL Neut % (Auto) 71.1 (42.2-75.2) % Lymph % (Auto) 18.6 L (20.5-50.1) % [place] % (Auto) 6.9 (2-8) % Eos % (Auto) 2.9 (1.0-3.0) % Baso % (Auto) 0.5 (0.0-1.0) % Sodium 135 L (136-145) mmol/L Potassium 4.4 (3.5-5.1) mmol/L Chloride 99 (98-107) mmol/L Carbon Dioxide 29 (21-32) mmol/L Anion Gap 11.4 (7-13) mEq/L BUN 8 (7-18) mg/dL Creatinine 0.95 (0.70-1.30) mg/dL Est Cr Clr Drug Dosing 93.92 mL/min Estimated GFR (MDRD) > 60 BUN/Creatinine Ratio 8.4 (No establ ref range) Glucose 248 H (74-99) mg/dL Calcium 8.4 L (8.5-10.1) mg/dL Total Bilirubin 0.9 (0.2-1.0) mg/dL AST 17 (15-37) U/L ALT 35 (16-63) U/L Alkaline Phosphatase 139 H (46-116) U/L Total Protein 7.4 (6.4-8.2) g/dL Albumin 3.7 (3.4-5.0) g/dL Globulin 3.7 Albumin/Globulin Ratio 1.0 Urine Color Yellow (YELLOW) Urine Appearance Clear (CLEAR) Urine pH 7.0 (5.0-9.0) Ur Specific [place] 1.020 (1.005-1.030) Urine Protein Negative (NEGATIVE) Urine Glucose (UA) 100 H (NEGATIVE) Urine Ketones Negative (NEGATIVE) Urine Occult Blood Negative (NEGATIVE) Urine Nitrite Negative (NEGATIVE) Urine Bilirubin Negative (NEGATIVE) Urine Urobilinogen 0.2 (0.2-1.0) mg/dL Ur Leukocyte Esterase Negative (NEGATIVE) Meds: Medications Discontinued Medications Generic Name Dose Route Start Last Admin Trade Name Freq PRN Reason Stop Dose Admin Mupirocin 1 gm 03/14/20 09:28 Bactroban Oint TOP 03/14/20 09:29 ONETIME ONE Departure - Departure Time of Disposition: 09:32 Disposition: Home, Self-Care 01 Condition: Good Clinical Impression: Left flank pain, Paronychia - Discharge Information *PRESCRIPTION DRUG MONITORING PROGRAM REVIEWED*: No *COPY OF PRESCRIPTION DRUG MONITORING REPORT IN PATIENT YOSEF: No Instructions: Flank Pain, Adult, [id number], Paronychia, [id number] Forms: ED Department Discharge Additional Instructions: RX: Bactroban ointment Soak the finger in warm water, may add peroxide or epsom salt if you have some Follow up with your primary care facility if no improvement with flank pain Drink plenty of fluids Sepsis Event Note (ED) - Evaluation Sepsis Screening Result: No Definite Risk - Focused Exam Vital Signs: Vital Signs Temp Pulse Resp BP Pulse Ox 03/14/20 08:19 98.7 F 100 18 149/84 H 98
[2020-03-14 09:14] LABS: ANION GAP 11.4 mEq/L (7-13); CHLORIDE,CL 99 mmol/L (98-107); SODIUM,NA 135 mmol/L (136-145)
[2020-03-14] MEDS ORDERED: Mupirocin Oint 22 GM Tube TOP ONE (09:28)
== END 2020-03-14 09:44 | disposition home or self-care (01) ==
LOC: DL.ED 08:12
DX: R10.9 Unspecified abdominal pain (principal); L03.011 Cellulitis of right finger; I10 Essential (primary) hypertension; K21.9 Gastro-esophageal reflux disease without esophagitis; E11.9 Type 2 diabetes mellitus without complications; E66.9 Obesity, unspecified; Z88.8 Allergy status to other drugs, medicaments and biological substances; Z88.1 Allergy status to other antibiotic agents; Z79.82 Long term (current) use of aspirin; Z79.899 Other long term (current) drug therapy
CPT/HCPCS: 36415; 80053; 81003; 85025; 99284; A9270; 99283

== ENCOUNTER 2020-09-12 10:35 | Emergency (ER) | payer BC, OTHER ==
[2020-09-12 10:44] VITALS: BP 159/78; PULSE 103
--- NOTE | 2020-09-12 11:32 | EDM.PDOC ---
ED HPI GENERAL MEDICAL PROBLEM - General Chief Complaint: Genitourinary Problem Stated Complaint: [id number] CIRCUMSION NOT HEALING Time Seen by Provider: 09/12/20 11:22 Source of Information: Reports: Patient, Old Records, RN, RN Notes Reviewed History Limitations: Reports: No Limitations - History of Present Illness INITIAL COMMENTS - FREE TEXT/NARRATIVE: Ramon is a 54 y/o male who presents to the ED via personal vehicle with complaints of redness and irritation to the inferior aspect of his glans penis. The patient reports he underwent a circumcision in December 2019 and has difficulty with healing since. He denies fever, shaking chills, palpitations, nausea, vomiting, diarrhea, or difficulty voiding. He was examined earlier this week and was started on an antibiotic ointment which has offered him no alleviation of symptoms. He has a follow up appointment with his surgeon in one month from today. - Related Data Allergies Allergy/AdvReac Type Severity Reaction Status Date / Time amlodipine Allergy Headache Verified 09/12/20 10:47 benazepril Allergy Cough Verified 09/12/20 10:47 cephalexin monohydrate Allergy Hives Verified 09/12/20 10:47 [From Keflex] ciprofloxacin [From Cipro] Allergy Hives Verified 09/12/20 10:47 ciprofloxacin HCl Allergy Hives Verified 09/12/20 10:47 [From Cipro] levofloxacin [From Levaquin] Allergy Hives Verified 09/12/20 10:47 Home Meds: Home Meds Losartan Potassium 1 tab PO DAILY 11/21/14 [History] Aspirin [Halfprin] 1 tab PO DAILY 07/21/15 [History] Ibuprofen [Motrin] 1 tab PO Q8H PRN 07/21/15 [History] Omeprazole 20 mg PO ACBREAKFAST 08/14/15 [History] sitaGLIPtin Phos/Metformin HCl [Janumet 50-1,000 MG] 1 tab PO WITHBREAKFAST 10/09/15 [History] Acetaminophen [Tylenol Extra Strength] 500 mg PO ASDIRECTED PRN 12/28/19 [History] metFORMIN HCl [Metformin HCl] 1,000 mg PO BID 03/14/20 [History] Past Medical History HEENT History: Reports: Impaired Vision Other HEENT History: wears glasses Cardiovascular History: Reports: High Cholesterol, Hypertension Respiratory History: Reports: None Gastrointestinal History: Reports: GERD Genitourinary History: Reports: Other (See Below) Other Genitourinary History: irritation under the foreskin Musculoskeletal History: Reports: None Neurological History: Reports: None Psychiatric History: Reports: None Endocrine/Metabolic History: Reports: Diabetes, Type II, Obesity/BMI 30+ Hematologic History: Reports: None Immunologic History: Reports: None Oncologic (Cancer) History: Reports: None Dermatologic History: Reports: Urticaria Other Dermatologic History: harsh area rash and irritation - Infectious Disease History Infectious Disease History: Reports: None - Past Surgical History Head Surgeries/Procedures: Reports: None HEENT Surgical History: Reports: Tonsillectomy GI Surgical History: Reports: Cholecystectomy Male Surgical History: Reports: Circumcision Social & Family History - Family History Family Medical History: No Pertinent Family History Cardiac: Reports: CAD, High Cholesterol, Hypertension - Tobacco Use Tobacco Use Status *Q: Unknown Ever Used Tobacco - Caffeine Use Caffeine Use: Reports: Coffee - Recreational Drug Use Recreational Drug Use: No - Living Situation & Occupation Living situation: Reports: Occupation: Employed ED ROS GENERAL - Review of Systems Review Of Systems: Comprehensive ROS is negative, except as noted in HPI. ED EXAM, SKIN/RASH Exam: See Below Exam Limited By: No Limitations General Appearance: Alert, No Apparent Distress Eye Exam: Bilateral Eye: EOMI, Normal Inspection, PERRL (3mm) Throat/Mouth: Normal Inspection, Normal Oropharynx, Normal Voice, No Airway Com promise Head: Atraumatic, Normocephalic Respiratory/Chest: No Respiratory Distress, Lungs Clear, Normal Breath Sounds, No Accessory Muscle Use, Chest Non-Tender Cardiovascular: Normal Peripheral Pulses, Regular Rate, Rhythm, No Edema, No Gallop, No JVD, No Murmur, No Rub Peripheral Pulses: 2+: Radial (L), Radial (R) GI/Abdominal: Normal Bowel Sounds, Soft, Non-Tender, No Distention, No Abnormal Bruit, No Mass, Pelvis Stable (Male) Exam: No Hernia, Circumcised, Penile Lesions (White patchy rash with erythema surrounding to inferior aspect of glans penis). No: Scrotum Tenderness (L), Scrotum Tenderness (R), Suprapubic Fullness, Testicular Tenderness (L), Testicular Tenderness (R), Urethral Discharge Back Exam: Normal Inspection, Full Range of Motion Extremities: Normal Inspection, Normal Range of Motion, Non-Tender, No Pedal Edema, Normal Capillary Refill Neurological: Alert, Oriented, CN II-XII Intact, Normal Cognition, Normal Gait, Normal Reflexes, No Motor/Sensory Deficits Psychiatric: Normal Affect, Normal Mood Skin: Warm, Rash (See above) Location, Skin: Genital Characteristics: Patchy, Erythematous Associated features: Tenderness, Weeping Lymphatic: No Adenopathy Course - Vital Signs Last Recorded V/S: Last Vital Signs Temp 98.5 F 09/12/20 10:43 Pulse 103 H 09/12/20 10:43 Resp 18 09/12/20 10:43 BP 159/78 H 09/12/20 10:43 Pulse Ox 99 09/12/20 10:43 - Re-Assessments/Exams Free Text/Narrative Re-Assessment/Exam: 09/12/20 Findings of examination reviewed with patient. Will treat yeast balanitis with nystatin powder. Discussed supportive cares as well as red flag signs and symptoms which would warrant reevaluation. Patient advised to follow up with surgeon regarding today's visit. Patient verbalized understanding and agreement with the plan of care. Departure - Departure Time of Disposition: 11:37 Disposition: Home, Self-Care 01 Condition: Good Clinical Impression: Balantidiosis - Discharge Information *PRESCRIPTION DRUG MONITORING PROGRAM REVIEWED*: Not Applicable *COPY OF PRESCRIPTION DRUG MONITORING REPORT IN PATIENT YOSEF: Not Applicable Forms: ED Department Discharge Additional Instructions: Rx: Nystatin Powder 1.) Keep foreskin clean and dry. 2.) Do not use antibiotic ointment with nystatin powder. 3.) Eat a yogurt, or take probiotics, daily. Sepsis Event Note (ED) - Evaluation Sepsis Screening Result: No Definite Risk
== END 2020-09-12 11:43 | disposition home or self-care (01) ==
LOC: DL.ED 10:35
DX: A07.0 Balantidiasis (principal); E78.00 Pure hypercholesterolemia, unspecified; I10 Essential (primary) hypertension; K21.9 Gastro-esophageal reflux disease without esophagitis; E11.9 Type 2 diabetes mellitus without complications; E66.9 Obesity, unspecified; Z68.41 Body mass index [BMI] 40.0-44.9, adult; Z79.84 Long term (current) use of oral hypoglycemic drugs; Z88.5 Allergy status to narcotic agent; Z88.1 Allergy status to other antibiotic agents; Z79.82 Long term (current) use of aspirin; Z79.899 Other long term (current) drug therapy
CPT/HCPCS: 99283

== ENCOUNTER 2024-08-21 01:29 | Emergency (ER) | payer BC ==
[2024-08-21] MEDS ORDERED: Sodium Chloride 0.9% 10 ML Syringe FLUSH PRN (01:31)
[2024-08-21] MEDS: Albuterol/Ipratropium 3.0-0.5 MG/3 ML Neb Soln NEB ONE (01:47)
[2024-08-21] MEDS: methylPREDNISolone Sodium Succinate 125 MG/2 ML SDV IVPUSH ONE (01:57)
[2024-08-21 02:05] LABS: BASOPHILS PERCENT AUTO 0.3 % (0.0-1.0); EOSINOPHILS PERCENT AUTO 2.4 % (1.0-3.0); HEMATOCRIT 44.1 % (40.0-54.0); HEMOGLOBIN 15.2 g/dL (14.0-18.0); LYMPHOCYTES PERCENT AUTO 16.7 % (20.5-50.1); MEAN CORPUSCULAR HEMOGLOBIN 31.3 pg (27.0-34.0); MEAN CORPUSCULAR HGB CONC 34.5 g/dL (33.0-35.0); MEAN CORPUSCULAR VOLUME 90.9 fL (80-100); MONOCYTES PERCENT AUTO 6.9 % (2-8); NEUTROPHILS PERCENT AUTO 73.7 % (42.2-75.2); PLATELET COUNT,PLT 222 10^3/uL (150-450); RED BLOOD CELL COUNT 4.85 10^6/uL (4.6-6.2); WHITE BLOOD CELL COUNT,WBC 8.9 10^3/uL (5.0-10.0)
[2024-08-21 02:26] LABS: PROTHROMBIN TIME 10.2 SEC (9.0-12.0)
[2024-08-21 02:33] LABS: ALBUMIN 3.3 g/dL (3.4-5.0); ANION GAP 11.9 mEq/L (7-13); BILIRUBIN TOTAL 0.6 mg/dL (0.2-1.0); CALCIUM 8.8 mg/dL (8.5-10.1); EST CRCL DRUG DOSING (CG) 83.83 mL/min; MAGNESIUM 1.6 mg/dL (1.8-2.4); POTASSIUM,K 3.9 mmol/L (3.5-5.1); PROTEIN TOTAL,TP 6.8 g/dL (6.4-8.2)
[2024-08-21 02:34] LABS: LACTIC ACID 1.3 mmol/L (0.4-2.0)
[2024-08-21 02:35] LABS: A/G RATIO 0.94
[2024-08-21] MEDS: methylPREDNISolone Sodium Succinate 125 MG/2 ML SDV IM ONE (02:35)
[2024-08-21] MEDS: Albuterol 6.7 GM Inhaler INH ONE (03:23)
[2024-08-21] MEDS: Doxycycline Monohydrate 100 MG Cap PO ONE (03:24)
[2024-08-21 03:35] VITALS: BP 135/79; PULSE 100
== END 2024-08-21 03:32 | disposition home or self-care (01) ==
LOC: DL.ED 01:29
DX: J18.9 Pneumonia, unspecified organism (principal); E78.00 Pure hypercholesterolemia, unspecified; I10 Essential (primary) hypertension; K21.9 Gastro-esophageal reflux disease without esophagitis; E11.9 Type 2 diabetes mellitus without complications; Z88.0 Allergy status to penicillin; Z88.1 Allergy status to other antibiotic agents; Z79.899 Other long term (current) drug therapy; Z88.6 Allergy status to analgesic agent; Z79.84 Long term (current) use of oral hypoglycemic drugs
CPT/HCPCS: 36415; 71045; 80053; 83605; 83735; 83880; 84484; 85025; 85610; 93005; 96374; 99285-25; A9270-GY; J2919